=== PATIENT | female | born 2000 ===

== ENCOUNTER 2020-09-13 21:50 | Emergency (ER) | payer SELFPAY ==
[2020-09-13] MEDS ORDERED: ONDANSETRON 4 MG ODT TAB PO ONE (22:39)
[2020-09-13] MEDS ORDERED: SULFAMETHOXAZOLE/TRIMETHOPRIM 800/160MG DS TAB PO ONE (22:39)
[2020-09-13] MEDS ORDERED: FAMOTIDINE 20 MG TAB PO ONE (22:39)
[2020-09-13] MEDS ORDERED: IBUPROFEN 600 MG TAB PO ONE (22:39)
[2020-09-13] MEDS ORDERED: ACETAMINOPHEN 500 MG TAB PO ONE (22:45)
--- NOTE | 2020-09-13 22:49 | Emergency Department Report ---
ED General Adult HPI - General Stated complaint: FEVER/RT ARM BUG BITE Source: patient Mode of arrival: Ambulatory Limitations: No Limitations - History of Present Illness Initial comments: Patient is a 19-year-old female with no past medical history presents to the ED with complaint of acute onset persistent painful swollen mild erythematous maculopapular rashes on upper arm bilaterally for the last 4 days, worse in the last 2 days. Patient also complains of nausea and vomiting, body aches and pains, chills, fever and lack of appetite for the last 24 hours. Patient denies traumatic injury, fall, insect bite, cough, chest pain, shortness of breath, abdominal pain, dysuria, urinary frequency and urgency, headache or change in vision and sore throat. MD Complaint: painful erythematous maculopapular rashes on upper extremities bilaterally -: Sudden, days(s) (4) Location: upper extremity (Bilateral upper extremities) Radiation: non-radiation Severity scale (0 -10): 8 Quality: burning, sharp Consistency: constant Improves with: none Worsens with: none Associated Symptoms: denies other symptoms, malaise, nausea/vomiting. denies: c onfusion, chest pain, cough, diaphoresis, fever/chills, headaches, loss of appetite, rash, seizure, shortness of breath, syncope, weakness Treatments Prior to Arrival: none - Related Data Previous Rx's Medication Instructions Recorded Last Taken Type Ibuprofen [Motrin] 600 mg PO Q8H PRN #30 tablet 09/13/20 Unknown Rx Ondansetron [Zofran Odt] 4 mg PO Q6HR PRN #20 tab.rapdis 09/13/20 Unknown Rx Sulfamethoxazole/Trimethoprim 1 each PO Q12H #20 tablet 09/13/20 Unknown Rx [Bactrim DS TAB] Allergies Allergy/AdvReac Type Severity Reaction Status Date / Time ceftriaxone [From Rocephin] AdvReac Unknown Verified 09/13/20 23:19 ED Review of Systems ROS: Stated complaint: FEVER/RT ARM BUG BITE Other details as noted in HPI Constitutional: chills, fever, malaise, weakness Eyes: denies: eye pain, eye discharge, vision change ENT: denies: ear pain, throat pain Respiratory: denies: cough, shortness of breath, wheezing Cardiovascular: denies: chest pain, palpitations Endocrine: no symptoms reported Gastrointestinal: nausea, vomiting. denies: abdominal pain, diarrhea Genitourinary: denies: urgency, dysuria, discharge Musculoskeletal: arthralgia (Bilateral upper extremity pain due to multiple erythematous maculopapular rashes), myalgia. denies: back pain, joint swelling Skin: rash (Multiple erythematous maculopapular painful rashes on upper arm bilaterally). denies: lesions Neurological: denies: headache, weakness, paresthesias Psychiatric: denies: anxiety, depression Hematological/Lymphatic: denies: easy bleeding, easy bruising ED Past Medical Hx - Medications Home Medications: Home Medications Medication Instructions Recorded Confirmed Last Taken Type Ibuprofen [Motrin] 600 mg PO Q8H PRN #30 tablet 09/13/20 Unknown Rx Ondansetron [Zofran Odt] 4 mg PO Q6HR PRN #20 tab.rapdis 09/13/20 Unknown Rx Sulfamethoxazole/Trimethoprim 1 each PO Q12H #20 tablet 09/13/20 Unknown Rx [Bactrim DS TAB] ED Physical Exam - General General appearance: alert, in no apparent distress, other (Febrile) - Head Head exam: Present: atraumatic, normocephalic, normal inspection - Eye Eye exam: Present: normal appearance, PERRL, EOMI Pupils: Present: normal accommodation - ENT ENT exam: Present: normal exam, normal orophraynx, mucous membranes moist, TM's normal bilaterally, normal external ear exam - Neck Neck exam: Present: normal inspection, full ROM. Absent: tenderness, meningismus - Respiratory Respiratory exam: Present: normal lung sounds bilaterally. Absent: respiratory distress, wheezes, rales, rhonchi, chest wall tenderness, accessory muscle use, decreased breath sounds - Cardiovascular Cardiovascular Exam: Present: regular rate, normal rhythm, normal heart sounds. Absent: systolic murmur, diastolic murmur, rubs, gallop - GI/Abdominal GI/Abdominal exam: Present: soft, normal bowel sounds. Absent: tenderness, rebound, hyperactive bowel sounds, hypoactive bowel sounds - Extremities Exam Extremities exam: Present: normal inspection, full ROM, tenderness (Palpable localized upper arm tenderness bilaterally due to erythematous maculopapular nonfluctuant rashes), normal capillary refill. Absent: pedal edema, joint swelling, calf tenderness - Back Exam Back exam: Present: normal inspection, full ROM. Absent: tenderness, CVA tenderness (R), CVA tenderness (L), muscle spasm, paraspinal tenderness, vertebral tenderness - Neurological Exam Neurological exam: Present: alert, oriented X3, CN II-XII intact, normal gait, reflexes normal - Psychiatric Psychiatric exam: Present: normal affect, normal mood - Skin Skin exam: Present: warm, dry, intact, rash (Multiple tender erythematous maculopapular nonfluctuant rashes on upper extremities bilaterally) ED Course Vital Signs 09/13/20 09/13/20 09/13/20 22:12 23:49 23:50 Temperature 100.3 F H Pulse Rate 84 Respiratory 14 18 18 Rate Blood Pressure 114/62 Blood Pressure [Left] O2 Sat by Pulse 99 Oximetry 09/14/20 00:39 Temperature 99.3 F Pulse Rate 80 Respiratory 12 Rate Blood Pressure Blood Pressure 101/64 [Left] O2 Sat by Pulse 99 Oximetry ED Medical Decision Making - Medical Decision Making This is a 19-year-old female with no past medical history presents to the ED with complaint of acute onset persistent painful swollen mild erythematous maculopapular rashes on upper arm bilaterally for the last 4 days, worse in the last 2 days. Patient also complains of nausea and vomiting, body aches and pains, chills, fever and lack of appetite for the last 24 hours. In the ED, patient is alert and oriented x3 and is not in any distress. Patient is however febrile in the triage. Patient was treated for pain in the ED and also given initial oral antibiotics based on the physical exam findings of eryth ematous maculopapular localized rashes on upper extremities suspected to be due to folliculitis, cellulitis, cutaneous abscess or suspected insect bites. On reevaluation, patient's fever resolved with medications. Patient was discharged home on pain medications, antibiotics and antiemetics and was advised to follow-up with her primary care physician in 5 to 7 days for reevaluation. Patient advised return to the ED immediately if symptoms get worse. - Differential Diagnosis Cellulitis; folliculitis; cutaneous abscess; insect bite Critical care attestation.: If time is entered above; I have spent that time in minutes in the direct care of this critically ill patient, excluding procedure time. ED Disposition Clinical Impression: Acute folliculitis Cellulitis of upper extremity Qualifiers: Laterality: unspecified laterality Qualified Code(s): L03.119 - Cellulitis of unspecified part of limb Cutaneous abscess of upper extremity Qualifiers: Laterality: unspecified laterality Qualified Code(s): L02.419 - Cutaneous abscess of limb, unspecified Disposition: TO HOME OR SELFCARE Is pt being admited?: No Does the pt Need Aspirin: No Condition: Stable Instructions: Skin Abscess, [id number], Cellulitis, Adult, [id number], Folliculitis Additional Instructions: Your symptoms are likely due to skin infection also known as cellulitis or folliculitis. Therefore take medications with food, drink plenty of fluids and follow-up with your primary care physician in 5 to 7 days for reevaluation. Return to the ED immediately if symptoms get worse. Prescriptions: Sulfamethoxazole/Trimethoprim [Bactrim DS TAB] 1 each PO Q12H #20 tablet Ibuprofen [Motrin] 600 mg PO Q8H PRN #30 tablet PRN Reason: Pain Ondansetron [Zofran Odt] 4 mg PO Q6HR PRN #20 tab.rapdis PRN Reason: Nausea Referrals: [facility] [Provider Group] - 3-5 Days Forms: Work/School Release Form(ED) Time of Disposition: 22:52 Print Language: [place]
[2020-09-14 00:40] VITALS: BP 101/64
== END 2020-09-14 00:40 | disposition home or self-care (01) ==
LOC: ED 21:50
DX: L73.9 Follicular disorder, unspecified (principal); L02.419 Cutaneous abscess of limb, unspecified; L03.119 Cellulitis of unspecified part of limb; Z88.8 Allergy status to other drugs, medicaments and biological substances; Z79.899 Other long term (current) drug therapy
CPT/HCPCS: 99282; Q0162